=== PATIENT | male | born 1970 | race Two or more races ===

== ENCOUNTER → 2019-09-01 | Outpatient (CLI) | payer OTHER ==
--- NOTE | 2019-09-02 09:26 | SLEEP ---
DATE OF STUDY: 09/01/2019 HOME SLEEP STUDY ATTENDING PHYSICIAN: Sarath Alcantara MD. The patient is a 49-year-old who weighs 243 pounds with a BMI of 35.9. The patient's Elcho score was 6. The patient underwent home sleep study performed by [facility]. During the night study, the patient had 2 obstructive apneas, no central apneas, 28 mixed apneas and 14 hypopneas. The patient's apnea-hypopnea index was 12.7 per hour. Nocturnal oximetry study revealed an average oxygen saturation of 89% with the lowest of 64%. 97 minutes were spent in oxygen saturation less than 90%. IMPRESSION: 1. Mild sleep apnea-hypopnea syndrome at an AHI of 12.7 per hour. 2. Nocturnal hypoxia secondary to obstructive sleep apnea. RECOMMENDATIONS: 1. The patient has mild sleep apnea. If the patient is clinically symptomatic or has comorbid conditions, then the patient's sleep apnea can be treated with CPAP versus an oral appliance as recommended by the dentist. 2. Weight loss is strongly advised. 3. Once the patient is optimally treated, then follow up in 4-6 weeks to assess compliance with treatment and to document clinical improvement. 4. Caution regarding driving until symptoms of sleep apnea resolve with the above recommendations. MARTY RUBIO MD DR: EMILY/nts JOB#: [id number] / [id number]
== END | disposition home or self-care (01) ==
LOC: RT 05:55
PROVIDERS: ATTEND Family Medicine
DX: G47.33 Obstructive sleep apnea (adult) (pediatric) (principal); G47.34 Idiopathic sleep related nonobstructive alveolar hypoventilation
CPT/HCPCS: G0399